=== PATIENT | female | born 1985 | race Caucasian/White ===

== ENCOUNTER 2021-02-15 10:36 | Outpatient (CLI) | payer OTHER, SELFPAY ==
[2021-02-15 11:40] LABS: Abs Immature Grans 0.03 10^3/uL (0.0-0.06); Absolute Basophil Count 0.03 10^3/uL (0.0-0.2); Absolute Eosinophil Count 0.18 10^3/uL (0.0-0.7); Absolute Monocyte Count 0.62 10^3/uL (0.1-0.8); Absolute Neutrophil Count 4.77 10^3/uL (1.2-6.7); Basophils % 0.4; Eosinophils % 2.2; HCT 35.7 % (36.0-46.0); HGB 12.4 g/dL (11.2-15.7); Immature Grans % 0.4; Lymphocytes % 30.8; MCH 29.7 pg (27.0-33.0); MCHC 34.7 % (32.0-36.0); MCV 85.4 fL (80-95); MPV 9.6 fL (8.0-11.0); Monocytes % 7.6; Neutrophils % 58.6; Nucleated RBC 0 %; Platelet Count 348 10^3/uL (130-400); RBC 4.18 10^6/uL (3.93-5.22); RDW 12.6 % (11.7-14.6); RDW-SD 38.9 fL; WBC 8.13 10^3/uL (4.4-10.8)
[2021-02-15 12:03] LABS: ALT 43 U/L (14-59); AST 20 U/L (15-37); Albumin 3.8 g/dL (3.4-5.0); Alkaline Phosphatase 115 U/L (46-116); BUN 6 mg/dL (7-18); Bilirubin, Total 0.3 mg/dL (0.2-1.0); CREATININE 0.9 mg/dL (0.55-1.02); Calcium 8.9 mg/dL (8.5-10.1); Chloride 102 mmol/L (98-107); Glucose 91 mg/dL (74-106); Sodium 137 mmol/L (136-145); TSH (W/Ref FT4) 1.73 uIU/mL (0.36-3.74); Total Protein 7.5 g/dL (6.4-8.2)
[2021-02-15 12:04] LABS: HCG Quant, Pregnancy < 1 mIU/mL (1-3)
[2021-02-15 17:05] LABS: FSH 3.4 mIU/mL (See Note); LH 1.6 mIU/mL (See Note); Prolactin 6.2 ng/mL (See Table)
[2021-02-20 18:30] LABS: 17-Hydroxyprogesterone <40 ng/dL
== END 2021-02-15 10:37 | disposition home or self-care (01) ==
PROVIDERS: Visit Provider Obstetrics & Gynecology
DX: N93.8 Other specified abnormal uterine and vaginal bleeding (principal)
CPT/HCPCS: 36415; 80053; 83001; 83002; 83498; 84146; 84443; 84702; 85025

== ENCOUNTER 2022-04-04 12:24 | Outpatient (CLI) | payer OTHER, SELFPAY ==
[2022-04-04 17:28] LABS: TSH (W/Ref FT4) 1.55 uIU/mL (0.36-3.74)
== END 2022-04-04 12:25 | disposition home or self-care (01) ==
LOC: LBO 12:33
PROVIDERS: Visit Provider Obstetrics & Gynecology
DX: R41.9 Unspecified symptoms and signs involving cognitive functions and awareness (principal); N93.8 Other specified abnormal uterine and vaginal bleeding
CPT/HCPCS: 36415; 84443

== ENCOUNTER 2022-05-02 10:21 | Outpatient (REF) | payer OTHER, SELFPAY ==
--- NOTE | 2022-05-02 14:00 | PAPFT_PTH ---
PATIENT: Evy Alex LOC: [facility] U#:[id number] AGE/SX: 36/F ROOM: RE05/02/[address]: Marilyn Peraza DO : 1985 BED: DIS: 05/02/2022 SPEC #: [id number] RECD: 05/03/22 10:26 STATUS: RANI REQ #: [id number] RICHMON[place]: 05/02/22 14:[address]: Marilyn Peraza [facility] Cytology RECD BY: Oly Kidd Tissues: 1 - CX/ENDOCX FOR PAP SMEARS Procedures: PAP THIN PREP/UVM Screening HPV DNA PROBE Comments: [id number] (HPV 16 & 18/45)
--- NOTE | 2022-05-02 14:00 | ENDOMET_PTH ---
PATIENT: Evy Alex LOC: [facility] U#:[id number] AGE/SX: 36/F ROOM: RE05/02/[address]: Marilyn Peraza DO : 1985 BED: DIS: 05/02/2022 SPEC #: [id number] RECD: 05/03/22 10:27 STATUS: RANI REQ #: [id number] [place]: 05/02/22 14:[address]: Marilyn Peraza DEPT: Surgical Specimen RECD BY: Oly Kidd Tissues: 1 - ENDOMETRIUM BX/CURRETTE Procedures: GROSS AND MICRO LEVEL 4 Comments: [id number]
== END 2022-05-02 10:22 | disposition home or self-care (01) ==
LOC: LBN 10:21
PROVIDERS: Visit Provider Obstetrics & Gynecology
DX: Z12.4 Encounter for screening for malignant neoplasm of cervix (principal); N93.8 Other specified abnormal uterine and vaginal bleeding; N85.8 Other specified noninflammatory disorders of uterus; R87.613 High grade squamous intraepithelial lesion on cytologic smear of cervix (HGSIL); R87.810 Cervical high risk human papillomavirus (HPV) DNA test positive; Z11.51 Encounter for screening for human papillomavirus (HPV)
CPT/HCPCS: 88142; 88305; 87624

== ENCOUNTER 2022-06-08 16:01 | Outpatient (REF) | payer OTHER, SELFPAY ==
--- NOTE | 2022-06-08 15:40 | ENDO_PTH ---
PATIENT: Evy Alex LOC: [facility] U#:[id number] AGE/SX: 36/F ROOM: RE06/08/[address]: Marilyn Peraza DO : 1985 BED: DIS: 06/08/2022 SPEC #: [id number] RECD: 06/08/22 17:18 STATUS: RANI REQ #: [id number] R[place]: 06/08/22 15:[address]: Marilyn Peraza DEPT: Surgical Specimen RECD BY: Alyssia Muñiz Tissues: 1 - ENDOCERVICAL BX/CURRETTE 2 - CERVICAL BIOPSY Procedures: GROSS AND MICRO LEVEL 4 Comments: [id number]
== END 2022-06-08 16:02 | disposition home or self-care (01) ==
LOC: LBN 16:01
PROVIDERS: Visit Provider Obstetrics & Gynecology
DX: N87.1 Moderate cervical dysplasia (principal)
CPT/HCPCS: 88305

== ENCOUNTER 2022-07-18 02:21 | Outpatient (CLI) | payer OTHER, SELFPAY ==
[2022-07-18 07:15] LABS: Abs Immature Grans 0.02 10^3/uL (0.0-0.06); Absolute Basophil Count 0.03 10^3/uL (0.0-0.2); Absolute Eosinophil Count 0.14 10^3/uL (0.0-0.7); Absolute Lymphocyte Count 1.98 10^3/uL (1.2-3.4); Absolute Monocyte Count 0.58 10^3/uL (0.1-0.8); Absolute Neutrophil Count 4.69 10^3/uL (1.2-6.7); Basophils % 0.4; Eosinophils % 1.9; HGB 12.3 g/dL (11.2-15.7); Immature Grans % 0.3; Lymphocytes % 26.6; MCH 25.6 pg (27.0-33.0); MCHC 32.4 % (32.0-36.0); MCV 79 fL (80-95); MPV 9.2 fL (8.0-11.0); Monocytes % 7.8; Platelet Count 308 10^3/uL (130-400); RDW 15.9 % (11.7-14.6); RDW-SD 45.6 fL; WBC 7.44 10^3/uL (4.4-10.8)
== END 2022-07-18 02:22 | disposition home or self-care (01) ==
LOC: LBO 02:21
PROVIDERS: Visit Provider Obstetrics & Gynecology
DX: N87.1 Moderate cervical dysplasia (principal); Z01.818 Encounter for other preprocedural examination; Z01.812 Encounter for preprocedural laboratory examination
CPT/HCPCS: 36415; 86850; 86900; 86901; 85025

== ENCOUNTER 2022-07-19 06:17 | Day surgery (SDC) | payer OTHER, SELFPAY ==
[2022-07-19 06:43] VITALS: BP 157/80; PULSE 61; RESP 18; TEMP 36.7; O2SAT 98
--- NOTE | 2022-07-19 06:51 | ANES.PREOP_ITS ---
General Info Date of Service Date Performed: 07/19/22 Height: 5 ft 7 in Weight: 116.5 kg Body Mass Index (BMI): 40.2 Surgical Procedure: Operation Date: 07/19/22 07:40 Proposed Procedure Side Surgeon p Loop Electrocautery Excisional Procedure aMrilyn Peraza DO Meds Allergies and Home Medications Allergies Allergy/AdvReac Type Severity Reaction Status Date / Time wool Allergy Hives Verified 07/19/22 06:50 elephants Allergy Hives Uncoded 07/19/22 06:50 Home Medication Medication Instructions Recorded multivitamin with iron 1 tab PO DAILY 02/15/21 etonogestrel 68 mg subdermal 1 implant subdermal ONCE 05/23/22 implant (Nexplanon) methylphenidate HCl 10 mg tablet 10 mg PO BID 07/18/22 albuterol sulfate 90 mcg/actuation inhalation PRN 07/19/22 aerosol inhaler Current Visit Medications: Current Medications Generic Name Dose Route Start Last Admin Trade Name Freq PRN Reason Stop Dose Admin Ringer's Solution 1,000 mls @ 125 mls/hr 07/19/22 06:00 IV 08/17/22 23:59 INFUSION DEVIN IV Miscellaneous Supplies 1 each 07/19/22 06:00 Iv Access IV 08/17/22 23:59 DIRECTED DEVIN Sodium Chloride 0 ml 07/19/22 06:00 Normal Saline Flush 10 Ml Syr IV 08/17/22 23:59 PRN PRN Sodium Chloride 0 ml 07/19/22 06:00 Normal Saline 10 Ml Vial IJ 08/17/22 23:59 DIRECTED PRN Sterile Water 0 ml 07/19/22 06:00 Water,Injection,Sterile 10 Ml Vial IJ 08/17/22 23:59 DIRECTED PRN PFSH Active Problems Active Problems: Problem Status Onset Code Asthma J45.909 DUB (dysfunctional uterine bleeding) N93.8 Difficulty concentrating R41.840 Word finding difficulty R47.89 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 states she wore a hearrt monitor in [place], was told it was nothign to be concerned about. Medical History Comments:: 07/19/22- pt reports she has delayed emergence from anesthesia post cholecystectomy (2014) Surgical History Surgical History (Updated 07/19/22 @ 06:54 by Mia Busby RN) History of cholecystectomy Tobacco Smoking/Tobacco Use Status: Former Tobacco Use Alcohol Alcohol Intake: current Alcohol intake frequency: holidays/special occasions only Alcohol type: wine Substance Use Substance use: Never Substance use type: does not use Prental History History 0 Para Hx # Term Pregnancies Multiple births Hx # Pregnancies Ectopic pregnancies AB induced Hx Number of Living Children AB spontaneous Vital Signs and Lab Results Vital Signs Most Recent Vital Signs in EMR: Most Recent Vital Signs Temp Pulse Resp BP Pulse Ox 36.7 C 61 18 157/80 H 98 07/19/22 06:43 07/19/22 06:43 07/19/22 06:43 07/19/22 06:43 07/19/22 06:43 Lab Results Blood Type / Crossmatch: Patient ABO/Rh O Negative 07/18/22 Antibody Screen NEGATIVE 07/18/22 Complete Blood Count: White Blood Count 7.44 10^3/uL (4.4-10.8) 07/18/22 07:08 Red Blood Count 4.80 10^6/uL (3.93-5.22) 07/18/22 07:08 Hemoglobin 12.3 g/dL (11.2-15.7) 07/18/22 07:08 Hematocrit 38.0 % (36.0-46.0) 07/18/22 07:08 Platelet Count 308 10^3/uL (130-400) 07/18/22 07:08 Complete Metabolic Panel: No Data to Display Liver Function Panel: No Data to Display Coagulation Panel: No Data to Display Cardiac Panel: No Data to Display Arterial Blood Gas: No Data to Display Venous Blood Gas: No Data to Display Pancreas Panel: No Data to Display Thyroid Panel: No Data to Display Infectious Disease: No Data to Display Blood Cultures: No Data to Display Toxicology Panel: No Data to Display Panel: No Data to Display Anesthesia Assessment and Plan Anesthesia History Personal History: Delayed Emergence Family History: No Family History of Anesthesia Complications Exercise Tolerance Exercise Tolerance: Metabolic Equivalents>4 Pertinent Negatives Pertinent Negatives: No Symptoms of GERD, No Major Cardiovascular Symptoms or Complaints and No History of CVA/TIA Cardiac & Pulmonary Exam Cardiac Exam: Normal S1/S2 Heart Sounds Pulmonary Exam: Clear Bilateral Breath Sounds Cardiac and Pulmonary Comment:: Per patient history of PVCs and wonkiness of the heart. Seen cardiology in [facility] in 2015. Reports heart stopping in an anesthetic around the same time. Wore a holter monitor, reports cards advised no change in medication and to come back if any further significant changes. Patient reports no change and able to perform strenuous activity. Implantable Cardiac Device Does patient have a Pacemaker or an ICD?: No Airway Exam Known Difficult Airway: No Mallampati Class: 2 Mouth Opening: Normal (> 3cm) Thyromental Distance: Greater than 3 cm Neck Range of Motion: Full ROM Neck Circumference: Normal Teeth Condition: Normal Dentition ASA Classification ASA Score: ASA 2 Emergency Case?: No NPO Status NPO Status: NPO Clears >2 hours, Solids >8 hours Status Status: Negative HCG Anesthesia Plan Resuscitation Status: Full Code Anesthesia Technique: General Anesthesia Airway Planned: Natural Airway Monitors Used: Standard Monitors
[2022-07-19 06:52] VITALS: BMI 40.2
[2022-07-19] MEDS: Lactated Ringers 1,000 ML 125 ML IV (07:18)
--- NOTE | 2022-07-19 07:49 | CER_PTH ---
PATIENT: Evy Alex LOC: [facility] U#:[id number] AGE/SX: 36/F ROOM: RE07/19/[address]: Marilyn Peraza DO : 1985 BED: DIS: 07/19/2022 SPEC #: [id number] RECD: 07/19/22 12:35 STATUS: SOUT REQ #: [id number] RICHMOND: 07/19/22 07:[address]: Marilyn Peraza DEPT: Surgical Specimen RECD BY: Alyssia Muñiz ENTERED: 07/19/22 12:36 SP TYPE: CER OTHR DR: Unknown,Unknown Tissues: 1 - CERVICAL CONE BX Procedures: GROSS AND MICRO LEVEL 5 Comments: [id number]
[2022-07-19 08:05] VITALS: BP 106/95; PULSE 70; RESP 16; TEMP 36.2; O2SAT 93
--- NOTE | 2022-07-19 08:05 | W.PM.OP ---
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 She has a history of abnormal Pap smears. Risk benefits and alternatives of cervical conization were explained to the patient in full informed consent was obtained. She was taken the operating suite with an IV running where she was placed in the dorsal supine position. General anesthesia administered without difficulty. She was then placed in the modified dorsal lithotomy position after pneumatic compression stockings placed for DVT prophylaxis. She was prepped and draped in the usual sterile fashion. Speculum was inserted into the vaginal vault for identification of the cervix. With a electrocautery loop with settings of 60/60 blend 1 cervical conization was performed. The base of the conization was cauterized and Monsel solution placed. Conization site is hemostatic. Specimen sent to pathology. At this point, ensuring hemostasis, patient was then returned to the dorsal supine position and awoke from anesthesia with ease. She was taken the recovery room in stable condition. Complications: None apparent EBL: 5 mL Pathology: Cervical conization Fluids: Crystalloid per anesthesia
[2022-07-19 08:37] VITALS: BP 107/76; PULSE 65; RESP 16; TEMP 36.5; O2SAT 95
--- NOTE | 2022-07-19 09:20 | W.ANESPOSTOP ---
Postoperative Evaluation Date, Time and Location Date Performed: 07/19/22 Time Performed: 08:37 Patient Location: Day Surgery Unit Vital Signs Most Recent Imported Vital Signs: Most Recent Vital Signs Temp Pulse Resp BP Pulse Ox 36.5 C 65 16 107/76 95 07/19/22 08:37 07/19/22 08:37 07/19/22 08:37 07/19/22 08:37 07/19/22 08:37 Pain Score Most Recent Pain Score: Most Recent Pain Score Pain Level 0 07/19/22 08:37 Assessment Mental Status: Arousable with meaningful communication Airway and Respiratory Function: Patent airway with normal (patient baseline) respiratory exam Cardiovascular Function: Hemodynamically Stable Hydration Status: Adequately Hydrated Nausea & Vomiting: No Nausea or Vomiting Pain: Pt. Denies Any Pain Peripheral Nerve Block: Patient did not receive a nerve block
== END 2022-07-19 09:10 | disposition home or self-care (01) ==
PROVIDERS: Visit Provider Obstetrics & Gynecology
PROC: 0UBC7ZZ Excision of Cervix, Via Natural or Artificial Opening (ICD-10-PCS; CPT 57522; principal; 2022-07-19 07:30)
DX: D06.9 Carcinoma in situ of cervix, unspecified (principal); N93.8 Other specified abnormal uterine and vaginal bleeding
CPT/HCPCS: 57522; 81025; 88307; J0131; J1100; J2250; J2405; J2704

== ENCOUNTER 2023-09-20 14:18 | Outpatient (REF) | payer OTHER, SELFPAY ==
[2023-09-25 11:52] LABS: Methylphenidate 81 ng/mL (Cutoff: 10); Ritalinic Acid 6047 ng/mL (Cutoff: 50)
== END 2023-09-20 14:19 | disposition home or self-care (01) ==
LOC: NCHCN 14:18
PROVIDERS: Visit Provider Family Medicine
DX: F90.0 Attention-deficit hyperactivity disorder, predominantly inattentive type (principal)
CPT/HCPCS: 80360

== ENCOUNTER 2023-10-09 12:24 | Outpatient (REF) | payer OTHER, SELFPAY ==
[2023-10-09 15:29] LABS: Abs Immature Grans 0.02 10^3/uL (0.0-0.06); Absolute Basophil Count 0.05 10^3/uL (0.0-0.2); Absolute Eosinophil Count 0.08 10^3/uL (0.0-0.7); Absolute Lymphocyte Count 2.24 10^3/uL (1.2-3.4); Absolute Monocyte Count 0.49 10^3/uL (0.1-0.8); Absolute Neutrophil Count 4.13 10^3/uL (1.2-6.7); Basophils % 0.7 %; Eosinophils % 1.1 %; HCT 39.6 % (36.0-46.0); HGB 13.8 g/dL (11.2-15.7); Immature Grans % 0.3 %; MCH 29.6 pg (27.0-33.0); MCHC 34.8 % (32.0-36.0); MCV 85 fL (80-95); MPV 10.6 fL (8.0-11.0); Neutrophils % 58.9 %; Platelet Count 300 10^3/uL (130-400); RBC 4.67 10^6/uL (3.93-5.22); RDW 12.1 % (11.7-14.6); RDW-SD 37.1 fL; WBC 7.01 10^3/uL (4.4-10.8)
[2023-10-09 15:43] LABS: ALT 32 U/L (14-59); AST 18 U/L (15-37); Albumin 3.9 g/dL (3.4-5.0); Alkaline Phosphatase 131 U/L (46-116); Amylase 37 U/L (25-115); Anion Gap 8.3 mmol/L (3-11); BUN 8 mg/dL (7-18); Bilirubin, Total 0.5 mg/dL (0.2-1.0); CO2 26.7 mmol/L (21.0-32.0); CREATININE 0.9 mg/dL (0.55-1.02); Calcium 9.1 mg/dL (8.5-10.1); Chloride 104 mmol/L (98-107); Estimated GFR 83.92 (mL/min/1.73m2); Glucose 89 mg/dL (74-106); Lipase 25 U/L (16-77); Potassium 3.8 mmol/L (3.5-5.1); Sodium 139 mmol/L (136-145); Total Protein 7.1 g/dL (6.4-8.2)
== END 2023-10-09 12:25 | disposition home or self-care (01) ==
LOC: LBN 12:24
PROVIDERS: Visit Provider Nurse Practitioner Family
DX: R10.13 Epigastric pain (principal)
CPT/HCPCS: 80053; 83690; 82150; 85025

== ENCOUNTER 2024-03-24 18:54 | Outpatient (REF) | payer OTHER, SELFPAY ==
--- OUTSIDE RECORDS SUMMARY | 2024-03-24 18:55 | XMS_ITS | Encounter Summary ---
Author Organization [facility] Address [address] [place] [address] Care Team Providers Care Assistant Professor Of English Name Role Phone Unknown, Provider Primary Care Provider Unava ilable Encounter Details Date Type Department Care Team (Late st Contact Info) Description 02/14/2018 Historical Results Only [facility] - Main [place] [address] [place] [address] Bailey Abraham, STATION MASTER [address] [facility] [address] [place] [address] Social History Tobacco Use Types Packs/Day Years Used Date Smoking Tobacco: Never Assessed Comments Unknown Sex and Gender Information Value Date Recorded Sex Assigned at Not on file Legal Sex Female 16:29 EDT Gender Identity Not on file Sexual Orientation Not on file documented as of this encounter Plan of Treatment Not on file documented as of this encounter Procedures Procedure Name Priority Date/Time Associated Diagnosis Comments [place] [facility] [place]ine 02/14/2018 10:21 EDT documented in this encounter Results * [place]NGIT[place]CRE[place] [facility] (02/14/2018 10:21 EDT) BETA HEMOLYTIC STREP NOT GRP A - CV ASSISTANT MANAGER PT 02/16/2018 11:33 EDT [facility] QUANT - [facility] FEW 02/16/2018 11:33 EDT [facility] USUAL ORAL/PHARYNGEA L BRYCE - CV UTF 02/16/2018 11:33 EDT [facility] PRESENT 02/16/2018 11:33 EDT [facility] 02/14/2018 10:2 1 EDT 02/14/2018 13:58 EDT us Bailey Abraham STATION MASTER CHEMISTRY & BLOOD GAS ORDERABLE S Final Result [facility] documented in this encounter Visit Diagnoses Not on filedocumented in this encounter Care Teams Assistant Professor Of English Relationship Specialty Start Date End Date Unknown, Provider, PCP - General 02/28/18 documented as of this encounter
--- OUTSIDE RECORDS SUMMARY | 2024-03-24 18:55 | XMS_ITS | Encounter Summary ---
Author Organization [facility] Address [address] [place] [address] Care Team Providers Care Hris Administrator Name Role Phone Unknown, Provider Primary Care Provider Unava ilable Encounter Details Date Type Department Care Team (Late st Contact Info) Description 05/04/2022 Lab Requisition [facility] Pathology & Laboratory Medicine - [facility] [address] [place] [address] Marilyn Peraza [address] [place] [address] [place] [address] Encounter for other general examination Social History Tobacco Use Types Packs/Day Years [...] Procedure Name Priority Date/Time Associated Diagnosis Comments SURGICAL PATHOLOGY Today 05/02/2022 14 :00 EST Encounter for other general examination documented in this encounter Results * SURGICAL PATHOLOGY (05/02/2022 14:00 EST) Note to Patient The following pathology results have been interpreted by your pathologist and may be available to you before your health provider has had the opportunity to review them. Please allow time for your provider to receive these results and explore management options, if applicable. 05/09/2022 10:15 EST [facility] Final Diagnosis A. ENDOMETRIUM, BIOPSY: - Altered endometrium with benign gland and stromal changes suggestive of progestin effect. 05/09/2022 10:15 [facility] Attestation There was significant resident/fellow involvement in the diagnostic evaluation of this case. By the signature below, the attending physician certifies that they have personally conducted a gross and/or microscopic examination of the described specimens and rendered or confirmed the above diagnosis. 05/09/2022 10:15 [facility] at 1015 Clinical History DUB 05/09/2022 10:15 [facility] Gross Description A. Received in formalin labelled with proper patient identification (initials H, C) and endometrial bx is an aggregate of sorensen-pink tissue fragments measuring 3.0 x 0.7 x 0.5 cm. Submitted entirely in A1. JOSEPHINE CHU(ASC) 05/04/2022 17:44 05/09/2022 10:15 [facility] Resident/Bob w: Barbie Blake MD PhD 05/09/2022 10:15 [facility] Performing Lab [facility] 05/09/2022 10:15 [facility] Scanned Images 05/09/2022 10:15 [facility] Tissue ENTIRE ENDOMETRIUM / Unknown 05/02/2022 14:00 EST 05/04/2022 16:01 EST Marilyn Peraza PATHOLOGY ORDERABLES Final Resul t [facility] [address] [place] [address] documented in this encounter Visit Diagnoses Diagnosis Encounter for other general examination documented in this encounter Care Teams Hris Administrator Relationship Specialty Start Date End Date Unknown, Provider, PCP - General 02/28/18 documented as of this encounter
--- OUTSIDE RECORDS SUMMARY | 2024-03-24 18:55 | XMS_ITS | Encounter Summary ---
Author Organization [facility] Address [address] [place] [address] Care Team Providers Care Success Coach Name Role Phone Unknown, Provider Primary Care Provider Unava ilable Encounter Details Date Type Department Care Team (Late st Contact Info) Description 02/15/2021 Lab Requisition [facility] Pathology & Laboratory Medicine - [facility] [address] [place], [place] [address] Outr Resulting Lab, Provider Social History Tobacco Use Types Packs/Day Years [...] Procedure Name Priority Date/Time Associated Diagnosis Comments HOLD SST Today 02/15/2021 11:20 EDT HOLD SST Today 02/15/2021 11:20 EDT PROLACTIN Today 02/15/2021 11:20 EDT LH Today 02/15/2021 11:20 EDT FSH Today 02/15/2021 11:20 EDT documented in this encounter Results * HOLD SST (02/15/2021 11:20 EDT) Hold Hold 02/15/2021 17:01 EDT [facility] Blood VENOUS BLOOD / Unknown 02/15/2021 11:20 EDT 02/15/2021 15:58 EDT us Provider Outr Resulting Lab LAB INFO SERVICE AND SUPPORT & PHONE RESULT Final Result [facility] [address] [place] [address] * HOLD SST (02/15/2021 11:20 EDT) Hold Hold 02/15/2021 17:01 EDT [facility] Blood VENOUS BLOOD / Unknown 02/15/2021 11:20 EDT 02/15/2021 15:58 EDT us Provider Outr Resulting Lab LAB INFO SERVICE AND SUPPORT & PHONE RESULT Final Result Performing Organization Address City/[facility]/ZIP Co de Phone Number [facility] [address] [place] [address] * LH (02/15/2021 11:20 EDT) Luteinizing Hormone 1.6 See Note mIU/mL 02/15/2021 17:00 EDT [facility] Comment: NOTE: Female Reference Ranges: Pre-Pubertal: ?<6.0 mIU/mL Menstruating: Follicular Phase(-12 to -4 days: ??1.9 - 12.5 mIU/mL Midcycle(-3 to +2 days): ?8.7 - 76.3 mIU/mL Luteal Phase(+4 to +12 days): ? 0.5 - 16.9 mIU/mL Post Menopausal: 15.9 - 54.0 mIU/mL Blood VENOUS BLOOD / Unknown 02/15/2021 11:20 EDT 02/15/2021 15:58 EDT us Provider Outr Resulting Lab CHEMISTRY & BLOOD GA S ORDERABLES Final Result Performing Organization Address [facility] Co de Phone Number [facility] [address] [place] [address] * FSH (02/15/2021 11:20 EDT) FSH 3.4 See Note mIU/mL 02/15/2021 16:58 EDT [facility] Blood VENOUS BLOOD / Unknown 02/15/2021 11:20 EDT 02/15/2021 15:58 EDT Narrative [facility] - 02/15/2021 16:58 EDT NOTE: Female FSH Reference Ranges (>= 13 Menstruating): PHYSIOLOGICAL STATUS ? REFERENCE RANGE ? Follicular (-12 to -4 days): ?? 2.5 - 10.2 mIU/mL Midcycle (-3 to +2 days): ?3.4 - 33.4 mIU/mL Luteal (+4 to +12 days): ? 1.5 - 9.1 mIU/mL Postmenopausal: ?23.0 - 116.3 mIU/mL Reference Ranges for female patients <13 years old have not been established. Provider Outr Resulting Lab CHEMISTRY & BLOOD GA S ORDERABLES Final Result Performing Organization Address [facility]/ZIP Co de Phone Number [facility] [address] [place] [address] * PROLACTIN (02/15/2021 11:20 EDT) Prolactin 6.2 See Table ng/mL 02/15/2021 16:59 EDT [facility] Comment: NOTE: Female Reference Ranges: PHYSIOLOGICAL STATUS ?EXPECTED RANGE ? Postmenopausal ?1.8 - 20.3 ng/mL ?9.7 - 208.5 ng/mL Non- ?2.8 - 29.2 ng/mL Reference Ranges for Prolactin in female patients <18 years old have not been established. Blood VENOUS BLOOD / Unknown 02/15/2021 11:20 EDT 02/15/2021 15:58 EDT us Provider Outr Resulting Lab CHEMISTRY & BLOOD GA S ORDERABLES Final Result [facility] [address] [place] [address] documented in this encounter Visit Diagnoses Not on filedocumented in this encounter Care Teams Success Coach Relationship Specialty Start Date End Date Unknown, Provider, PCP - General 02/28/18 documented as of this encounter
--- OUTSIDE RECORDS SUMMARY | 2024-03-24 18:55 | XMS_ITS | Encounter Summary ---
Author Organization [facility] Address [address] [place] [address] Care Team Providers Care Customs And Border Protection Officer Name Role Phone Unknown, Provider Primary Care Provider Unava ilable Encounter Details Date Type Department Care Team (Late st Contact Info) Description 05/04/[address] [facility] Pathology & Laboratory Medicine - [facility] [address] [place] [address] Marilyn Peraza [address] [place] [address] [place] [address] Encounter for other general examination [...] Procedure Name Priority Date/Time Associated Diagnosis Comments PAP TEST Today 05/02/2022 14:00 EST Encounter for other general examination HPV GENOTYPES 16 AND 18/45 Today 05/02/2022 14:00 EST Encounter for other general examination HPV DNA DETECTION WITH GENOTYPING, PCR Today 05/02/2022 14:00 EST Encounter for other general examination documented in this encounter Results * (ABNORMAL) HPV GENOTYPES 16 AND 18/45 (05/02/2022 14:00 EST) HPV High Risk type 16, PCR Positive(A) Negative 05/18/2022 12:[address] [facility] HPV18/45 RNA (HPV18/45) Negative Negative 05/18/2022 12:[address] [facility] Papanicolaou smear specimen (specimen) CERVIX UTERI STRUCTURE / Unknown 05/02/2022 14:00 EST 05/16/2022 16:12 EST [employer] [facility] GENERAL ORDERABLE S Final Result Performing Organization Address [facility] de Phone Number [facility] [address] [place] [address] * (ABNORMAL) HUMAN PAPILLOMAVIRUS (HPV) DETECTION-HIGH RISK TYPES (05/02/2022 14:00 EST) HPV other High Risk types, PCR Positive( A) Negative 05/23/2022 9:56 [facility] Comment:E6 OR E7 mRNA from o ne or more types of HPV types 16,18,31,33,35,39,45,51,52,56,58,59,66, and 68 is detected by marriage and family counselor mediated amplification. High and intermediate risk HPV types are associated with most squamous intraepithelial lesions and cervical cancers. Papanicolaou smear specimen (specimen) CERVIX UTERI STRUCTURE / Unknown 05/02/2022 14:00 EST 05/16/2022 16:12 EST us Marilyn Peraza [facility] GENERAL ORDERABLE S Final Result Performing Organization Address [facility] de Phone Number [facility] [address] [place] [id number] * PAP TEST (05/02/2022 14:00 EST) Specimens A. Cervix and/or Endocervix , ThinPrep Imaging System with Manual Evaluation 05/23/2022 9:56 [facility] Specimen Adequacy Satisfactory for Evaluation - transformation zone component present 05/23/2022 9:56 [facility] General Categorization Epithelial Cell Abnormality 05/23/2022 9:56 [facility] Descriptive Diagnosis Squamous Cell Abnormality - High grade squamous intraepithelial lesion (HSIL). 05/23/2022 9:56 [facility] Educational Comments [facility] recommends following the ASCCP's management guidelines which may be found at www.asccp.org 05/23/2022 9:56 [facility] Attestation By the signature below, the attending physician certifies that they have personally conducted a gross and/or microscopic examination of the described specimens and rendered or confirmed the above diagnosis. 05/23/2022 9:56 [facility] at 0956 Clinical History See below 05/23/19 9:56 [facility] HPV The result for the Human Papillomavirus (HPV) Detection-High Risk Types is Positive . E6 OR E7 mRNA from one or more types of HPV types 16,18,31,33,35,39 ,45,51,52,56,58,5 9,66, and 68 is detected by marriage and family counselor mediated amplification. High and intermediate risk HPV types are associated with most squamous intraepithelial lesions and cervical cancers. Testing was performed on specimen [id number] and was resulted on 05/17/2022 1510 EST by ZOE, LAB INSTRUMENT RESULTS IN 05/23/2022 9:56 [facility] Genotyping 16 & 18/45 The results for the HPV Genotypes 16 and 18/45 are Positive for the HPV16 RNA and Negative for the HPV18/45 RNA (HPV18/45). Testing was performed on specimen [id number] and was resulted on 05/18/2022 1237 EST by ZOE, LAB INSTRUMENT RESULTS IN 05/23/2022 9:56 [facility] Performing Lab [facility] 05/23/2022 9:56 [facility] Scanned Images 05/23/2022 9:56 [facility] Papanicolaou smear specimen (specimen) CERVIX UTERI STRUCTURE / Unknown 05/02/2022 14:00 EST 05/04/2022 10:24 EST Marilyn Stu PATHOLOGY ORDERABLES Final Resul t [facility] [address] [place] [address] documented in this encounter Visit Diagnoses Diagnosis Encounter for other general examination documented in this encounter Care Teams Customs And Border Protection Officer Relationship Specialty Start Date End Date Unknown, Provider, PCP - General 02/28/18 documented as of this encounter
--- OUTSIDE RECORDS SUMMARY | 2024-03-24 18:55 | XMS_ITS | Clinical Summary ---
Author Organization [facility] Address [address] [place] [address] Care Team Providers Care Insole Doubler Name Role Phone Unknown, Provider MD Primary Care Provider Unava ilable Social History Tobacco Use Types Packs/Day Years Used Date Smoking Tobacco: Never Assessed Comments Unknown Sex and Gender Information Value Date Recorded Sex Assigned at Not on file Legal Sex Female 16:29 EDT Gender Identity Not on file Sexual Orientation Not on file Plan of Treatment Health Maintenance Due Date Last Done Comments Hepatitis C Screen 1984 Hepatitis B Vaccine (1 of 3 - 19+ 3-dose series) 11/03 COVID-19 Vaccine (2023- season) 2024 Insurance [employer] Care Teams Insole Doubler Relationship Specialty Start Date End Date Unknown, Provider, PCP - General 02/28/18
--- OUTSIDE RECORDS SUMMARY | 2024-03-24 18:55 | XMS_ITS | Encounter Summary ---
Author Organization [facility] Address [address] [place] [address] Care Team Providers Care Electronics Commodity Manager Name Role Phone Unknown, Provider Primary Care Provider Unava ilable Encounter Details Date Type Department Care Team (Late st Contact Info) Description 06/09/2022 Lab Requisition [facility] Pathology & Laboratory Medicine - [facility] [address] [place] [address] Marilyn Peraza [address] [place] [address] [place] [address] Encounter for other general examination [...] Date/Time Associated Diagnosis Comments SURGICAL PATHOLOGY Today 06/08/2022 15 :40 EST Encounter for other general examination documented in this encounter Results * SURGICAL PATHOLOGY (06/08/2022 15:40 EST) Note to Patient The following pathology results have been interpreted by your pathologist and may be available to you before your health provider has had the opportunity to review them. Please allow time for your provider to receive these results and explore management options, if applicable. 06/15/2022 13:06 EST [facility] Final Diagnosis A. ENDOCERVIX, CURETTAGE: - Scant fragments of benign endocervix. B. CERVIX, 6 O'CLOCK, BIOPSY: - High-grade squamous intraepithelial lesion (SARAH 2 to 3), small fragment. 06/15/2022 13:06 [facility] Attestation By the signature below, the attending physician certifies that they have 1) personally conducted a gross and/or microscopic examination of the described specimen(s), and/or personally interpreted the results of laboratory testing of the described specimen(s), and 2) personally rendered or confirmed the above diagnosis. 06/15/2022 13:06 [facility] at 1306 Clinical History HSIL Pap 06/15/2022 13:06 [facility] Gross Description A. Received in formalin labelled with proper patient identification (initials H, C) and ECC received on a cervical brush is an aggregate of clear translucent mucinous material that measures 0.1 x 0.1 x less than 0.1 cm. The specimen is submitted entirely in A1. Please note that the specimen may not survive processing. B. Received in formalin labelled with proper patient identification (initials H, C) and cervical bx 6 o'clock is a single sorensen tissue fragment (0.2 x 0.1 x 0.1 cm). Submitted intact in B1. Britt Davis 06/09/2022 9:24 06/15/2022 13:06 [facility] Performing Lab [facility] 13:06 [facility] Scanned Images 06/15/2022 13:06 [facility] Tissue ENTIRE WALL OF CERVIX / Unknown 06/08/2022 15:40 EST 06/09/2022 8:08 EST Tissue specimen (specimen) CERVIX UTERI STRUCTURE / Unknown 06/08/2022 15:40 EST 06/09/2022 8:08 EST Marilyn Peraza PATHOLOGY ORDERABLES Final Resul t [facility] [address] [place] [address] documented in this encounter Visit Diagnoses Diagnosis Encounter for other general examination documented in this encounter Care Teams Electronics Commodity Manager Relationship Specialty Start Date End Date Unknown, Provider, PCP - General 02/28/18 documented as of this encounter
--- OUTSIDE RECORDS SUMMARY | 2024-03-24 18:55 | XMS_ITS | Referral Summary ---
Author Organization [facility] Address [address] [place] [address] Care Team Providers Care Junior Net Developer Name Role Phone Unknown, Provider MD Primary Care Provider Unava ilable Social History Tobacco Use Types Packs/Day Years Used Date Smoking Tobacco: Never Assessed Comments Unknown Sex and Gender Information Value Date Recorded Sex Assigned at Not on file Legal Sex Female 16:29 EDT Gender Identity Not on file Sexual Orientation Not on file Plan of Treatment Not on file Insurance [facility] Care Teams Junior Net Developer Relationship Specialty Start Date End Date Unknown, Provider, PCP - General 02/28/18
--- OUTSIDE RECORDS SUMMARY | 2024-03-24 18:55 | XMS_ITS | Encounter Summary ---
Author Organization [facility] Address [address] [place] [address] Care Team Providers Care Medical Reception Name Role Phone Unknown, Provider Primary Care Provider Unava ilable Encounter Details Date Type Department Care Team (Late st Contact Info) Description 07/19/2022 Lab Requisition [facility] Pathology & Laboratory Medicine - [facility] [address] [place] [address] Marilyn Peraza [address] [place] [address] [place] [address] Other specified postprocedural states Social History Tobacco Use Types Packs/Day Years [...] Date/Time Associated Diagnosis Comments SURGICAL PATHOLOGY Today 07/19/2022 7: 49 EDT Other specified postprocedural states documented in this encounter Results * SURGICAL PATHOLOGY (07/19/2022 7:49 EDT) Note to Patient The following pathology results have been interpreted by your pathologist and may be available to you before your health provider has had the opportunity to review them. Please allow time for your provider to receive these results and explore management options, if applicable. 07/24/2022 10:53 EDT [facility] Final Diagnosis A. 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 - Margins negative for dysplasia. 07/24/2022 10:53 T [facility] Attestation There was significant resident/fellow involvement in the diagnostic evaluation of this case. By the signature below, the attending physician certifies that they have personally conducted a gross and/or microscopic examination of the described specimens and rendered or confirmed the above diagnosis. 07/24/2022 10:53 [facility] at 1053 Clinical History SARAH II 07/24/2022 10:53 [facility] Gross Description A. Received in formalin labelled with proper patient identification (initials H, C) and cervical conenation is an unoriented ovoid cervical tissue with cauterized margins (1.6 x 1.3 cm, excised to a depth of 0.9 cm), with a central 0.4 cm slit-like os. The ectocervical mucosa is pink-peñaloza and smooth. The ectocervical margins are inked black and the endocervical margins are inked blue. The specimen is radially sectioned in a clockwise fashion and entirely submitted as consecutive sections as A1-A6. JOSEPHINE TAMEZ(ASCP) 07/20/2022 16:29 07/24/2022 10:53 [facility] Resident/Bob w: Candice Mosley MD 07/24/2022 10:53 [facility] Performing Lab [facility] 10:53 [facility] Scanned Images 07/24/2022 10:53 [facility] Tissue ENTIRE WALL OF CERVIX / Unknown 07/19/2022 7:49 EDT 07/19/2022 16:45 EDT Marilyn Peraza PATHOLOGY ORDERABLES Final Resul t [facility] [address] [place] [address] documented in this encounter Visit Diagnoses Diagnosis Other specified postprocedural states documented in this encounter Care Teams Medical Reception Relationship Specialty Start Date End Date Unknown, Provider, PCP - General 02/28/18 documented as of this encounter
[2024-03-24 20:50] LABS: Calculated LDL 97 mg/dL (<100); Cholesterol 165 mg/dL (<200); HDL Cholesterol 50 mg/dL (40-60); Triglyceride 90 mg/dL (<150)
== END 2024-03-24 18:55 | disposition home or self-care (01) ==
LOC: NCHCN 18:54
PROVIDERS: Visit Provider Family Medicine
DX: Z00.00 Encounter for general adult medical examination without abnormal findings (principal)
CPT/HCPCS: 80061

== ENCOUNTER 2024-12-09 14:59 | Outpatient (CLI) | payer OTHER, SELFPAY | END 2024-12-09 15:00 | disposition home or self-care (01) | LOC: CARDOPNVT 14:59 | PROVIDERS: Visit Provider Family Medicine | DX: R00.2 Palpitations (principal) | CPT/HCPCS: 93246 ==

== ENCOUNTER 2024-12-30 07:09 | Outpatient (CLI) | payer OTHER, SELFPAY ==
--- NOTE | 2024-12-30 12:44 | W.CARDEVENT ---
Date of service: 12/30/24 Time of Service: 12:44 Cardiac Event Recorder Referring Provider:: Duy Burroughs Indications:: Palpitations Cardiac Event Note: This is a cardiac event monitor. Patient was monitored for 12 days and 10 hours Rhythm throughout was sinus with an average heart rate of 76. Minimum was 38, maximum 156 There were very rare isolated atrial and ventricular ectopic beats. There was no atrial fibrillation, no high-grade AV block, no pauses greater than 3 seconds. No symptoms were reported
== END 2024-12-30 07:10 | disposition home or self-care (01) ==
LOC: CARDOPNVT 07:09
PROVIDERS: Visit Provider Internal Medicine Cardiovascular Disease
DX: R00.2 Palpitations (principal)
CPT/HCPCS: 93248